=== PATIENT | female | born 1955 | race Caucasian/White ===

== ENCOUNTER → 2016-11-02 | Day surgery (SDC) | payer OTHER ==
[~2016-11-02] MED LIST: ACETAMINOPHEN PO; ALB/IPRATROPIUM/1 E1 INH; ALBUTEROL 0.5ML INH; ALBUTEROL INH; ALBUTEROL MININEB INH; ALBUTEROL17 GM INH; AMBIEN PO; AMITRIPTYLINE H50 MG PO; ANUSOL-HC SUPP25 M1 PR; ASPIRIN EC81 M1 PO; ASPIRIN PO; ASPIRIN81 M1 PO; ASPIRIN81 MG PO; ATIVAN0.5 M1 PO; ATROVENT HFA12.9 G1 INH; ATROVENT HFA12.9 GM INH; BACTRIM DS TABL1 TA1 PO; BUSPAR15 M1 PO; CELEXA20 MG PO; CIPRO PO; CIPRODEX OTIC7.5 ML OT; CLARITIN10 M2 PO; CLOPIDOGREL75 MG PO; COLACE PO; COMBIVENT U/D3 M2 INH; COREG; COREG PO; COREG3.125 MG PO; COREG6.25 MG PO; CRESTOR10 MG PO; CYMBALTA PO; DARVOCET-N 1001 TAB PO; DESYREL100 MG PO; DESYREL50 MG PO; DOC-Q-LACE100 MG PO; DOCUSATE SODIU100 MG PO; DOXEPIN HCL25 MG PO; DOXEPIN HCL50 MG PO; DURAGESIC100 MCG EXT; DURAGESIC75 MCG EXT; DURAGESIC75 MCG TD; EFFEXOR-XR150 MG PO; EFFIENT10 MG PO; FLEXERIL PO; FLEXERIL10 M1 PO; FLEXERIL10 MG PO; FLOMAX0.4 M1 PO; FLORASTOR250 M1 PO; FLORASTORKIDS250 MG PO; FLOVENT HFA12 GM INH; FUROSEMIDE40 MG PO; GABAPENTIN400 M2 PO; GABAPENTIN800 MG PO; GLUCOPHAGE500 M1 PO; GLUCOPHAGE500 MG PO; GUAIFENESIN-DM S5 ML PO; IBUPROFEN PO; IMDUR PO; IMODIUM MS REL1 EAC1 PO; IMODIUM2 MG PO; IPRAT-ALBUT 0.5-3 ML IH; K-DUR20 ME1 PO; KCL PO; KLONOPIN PO; KLONOPIN1 MG PO; LACTULOSE10 G/15 M1 PO; LASIX PO; LASIX20 MG PO; LEVAQUIN750 MG PO; LIDODERM30 EA TOP; LISINOPRIL PO; LISINOPRIL10 MG PO; LISINOPRIL2.5 MG PO; LISINOPRIL20 MG PO; LORTAB 5/500 TA1 TA1 PO; MAALOX ADVANCE1 EACH PO; MEDROL PO; MEPILEX TOP; METHIMAZOLE10 MG PO; METHIMAZOLE5 MG PO; METOPROLOL TAR25 MG PO; METOPROLOL TART25 MG PO; MI-ACID, M355 ML/SU1 PO; MILK OF MAGNESIA PO; MORPHINE SULFAT30 M4 PO; MS CONTIN30 MG PO; MUCINEX1200 MG PO; NEURONTIN PO; NEURONTIN800 MG PO; NEXIUM PO; NITRO-DUR 0.1M0.1 MG SL; NITROGLYCERIN0.4 MG SL; NITROGLYGERIN0.4 MG SL; NORCO 10/325 TA1 TAB PO; NORVASC PO; NYSTATIN100000 UN1 PO; OMEPRAZOLE20 M2 PO; OXYCODONE HCL30 MG PO; OXYCODONE HCL5 M1 PO; OXYCODONE15 M1 DOB; OXYCODONE15 M1 PO; PEPCID40 MG PO; PERCOCET 10/3251 TAB PO; PERCOCET 5/321 UDTAB PO; PERCOCET PO; PHENERGAN12.5 MG PO; PHENERGAN25 M1 PO; PHENERGAN25 MG PO; PHENERGAN25 MG/1 ML IM; PLAVIX PO; POTASSIUM20 MEQ/15 PO; PRAVASTATIN SOD40 MG PO; PRILOSEC PO; PRILOSEC40 MG PO; PROTONIX PO; PROTONIX20 MG PO; PULMICORT0.25 MG/2 INH; RANEXA PO; REGLAN10 MG PO; REGLAN5 MG PO; RENEXA PO; RESTORIL7.5 MG PO; ROBAXIN PO; ROCEPHIN1 G/VIA1 IV/IM; ROXICODONE30 M1 PO; SENNA-S TABLET1 EACH PO; SIMVASTATIN40 MG PO; SIMVASTATIN80 MG PO; SINGULAIR PO; SYMBICORT; SYMBICORT 160/4.6 GM INH; SYMBICORT INH; SYMBICORT80 INH; TAPAZOLE10 MG PO; TESSALON PERLE100 M1 PO; TRICOR PO; TYLENOL325 M1 PO; TYLOX 5/500 CAP1 CAP PO; VALTREX PO; VENTOLIN IH; VENTOLIN5 MG/ML; VICODIN 5/500 T1 TAB PO; VITAMIN D350000 UNIT PO; VOLTAREN50 MG PO; VOLTAREN75 MG PO; VYTORIN 10/40 T1 TAB PO; WALGREENS PHARMACY; ZESTRIL10 MG PO; ZITHROMAX PO; ZOCOR PO; ZOLPIDEM TARTRA10 MG PO
--- NOTE | ~2016-11-02 | OR ---
Unit #: [id number] #: [id number] Patient: KYLAH HAQ [id number] [address] [place], [place] [address] [id number] O MR#: [id number] NAME: KYLAH HAQ. ROOM: Date of Procedure: 11/02/2016 Admission Date: 11/02/2016 Surgeon: Steven Marcano M.D. : 1955 Attending Physician: Steven Marcano M.D. OPERATIVE REPORT PRIMARY CARE PHYSICIAN Og Goss M.D. PREOPERATIVE DIAGNOSES The patient presented with history of odynophagia. She is on multiple medications. PROCEDURE PERFORMED Upper gastrointestinal endoscopy. POSTOPERATIVE DIAGNOSES Completely normal examination up to third part of duodenum. Specifically, no abnormalities were present in the oropharynx, hypopharynx, interarytenoid folds, and vallecula, as well as in the entire esophagus. RECOMMENDATIONS Suggest doing a modified swallow evaluation in the half-way and review in the office in about 3 months. SEDATION USED MAC. DESCRIPTION OF PROCEDURE Following detailed explanation of potential risks and complications of an upper endoscopy, namely perforation, bleeding, and complication related to sedation, the patient was brought to GI lab and laid in the left lateral decubitus position. Lubricated tip of the Olympus video upper endoscope was passed through the bite block into the proximal esophagus under direct vision. The entire esophageal mucosa was examined and appeared normal. Z-line was nicely demarcated, there being no esophagitis or hiatus hernia. The scope was then advanced into the gastric cavity and the latter was insufflated. Mucosa of the fundus, body, and antrum was examined and appeared unremarkable. Pylorus was intubated with visualization of the normal duodenal bulb and second and third part of the duodenum. Upon withdrawal and retroflexion, incisura, cardia, and greater curve was examined and no additional findings were noted. The scope was then withdrawn in the distal esophagus. The entire esophageal mucosa was examined all the way up to pharynx. No additional findings were noted. Particular attention was paid to the posterior pharynx, vallecula, interarytenoid folds and these were all normal. The scope was then withdrawn and the patient returned to the recovery area. She tolerated the procedure without any postprocedure complications. Unit #: [id number] #: [id number] Patient: KYLAH HAQ Dictated by... Gurinder Fuchs/ashlie TD: 11/02/2016 10:52 JOB #: [id number] CC: Og Goss M.D. OPERATIVE REPORT Page 1 of 1 X Steven Marcano MD X PROCEDURE OPERATIVE NOTE
== END | disposition home or self-care (01) ==
LOC: COPS 08:11
DX: R13.10 Dysphagia, unspecified (principal); E11.9 Type 2 diabetes mellitus without complications; K21.9 Gastro-esophageal reflux disease without esophagitis; J44.9 Chronic obstructive pulmonary disease, unspecified; I25.10 Atherosclerotic heart disease of native coronary artery without angina pectoris; F17.200 Nicotine dependence, unspecified, uncomplicated; I25.2 Old myocardial infarction; Z95.5 Presence of coronary angioplasty implant and graft; Z88.1 Allergy status to other antibiotic agents; I69.354 Hemiplegia and hemiparesis following cerebral infarction affecting left non-dominant side
CPT/HCPCS: 82947

== ENCOUNTER 2016-12-15 22:21 | Emergency (ER) | payer OTHER ==
--- NOTE | ~2016-12-15 | CR71 ---
[facility] A Service of [facility] & [facility] RADIOLOGY TEXT RESULTS PATIENT: KYLAH HAQ LOCATION: [facility] : 55 UNIT #: [id number] AGE: [address]: Kaylyn Draper MD SEX: F ORDER DR: [id number] [facility] [address] [place], [place] [address] [id number] E MR#: [id number] Acc #: [id number] NAME: KYLAH HAQ. : 1955 SEX: F STUDY DATE/TIME: 12/15/2016 21:42 UNIT: [facility] ROOM: STUDY DESCRIPTION: CR Chest Single View Attending Physician: Kaylyn Draper M.D. Ordering Physician: Kaylyn Draper M.D. Primary Care Physician: Og Goss M.D. MEDICAL IMAGING REPORT This report is preliminary unless electronic signature is present EXAM Portable chest 12/15/2016 HISTORY Chest pain status post fall with shortness of breath today. Benign essential hypertension. FINDINGS The heart is top-normal in size. There is poor inspiratory result with bibasilar atelectasis. The lungs are otherwise clear. There are no pleural effusions. Old, healed rib fractures are seen bilaterally. IMPRESSION Mild cardiac enlargement. No active pulmonary disease. Dictated by... Mao Blue M.D. THIS IS AN ELECTRONICALLY VERIFIED REPORT Mao Blue M.D. at 12/16/2016 2:16 PM KRT/psc TD: 12/16/2016 00:46 JOB #: [id number] MEDICAL IMAGING REPORT Page 1 of 1 COPY
--- NOTE | ~2016-12-15 | CR229 ---
[facility] A Service of [facility] & [facility] RADIOLOGY TEXT RESULTS PATIENT: KYLAH HAQ LOCATION: [facility] : 55 UNIT #: [id number] AGE: [address]: Kaylyn Draper MD SEX: F ORDER DR: [id number] [facility] [address] [place], [place] [address] [id number] E MR#: [id number] Acc #: [id number] NAME: KYLAH HAQ : 1955 SEX: F STUDY DATE/TIME: 12/15/2016 21:43 UNIT: [facility] ROOM: STUDY DESCRIPTION: CR Shoulder Min 2 View Lt Attending Physician: Kaylyn Draper M.D. Ordering Physician: Kaylyn Draper M.D. Primary Care Physician: gO Goss M.D. MEDICAL IMAGING REPORT This report is preliminary unless electronic signature is present EXAM Left shoulder, 3 views, 12/15/2016 HISTORY Left shoulder pain status post fall today. FINDINGS Three views of the left shoulder demonstrate no fracture. The bones are osteopenic. There is degenerative narrowing of the left glenohumeral joint with osteophytic spurring about the glenoid and left humeral head. The left acromioclavicular joint is intact. There is no soft tissue abnormality. IMPRESSION Degenerative change and osteopenia. No acute abnormality involving the left shoulder. Dictated by... Mao Blue M.D. THIS IS AN ELECTRONICALLY VERIFIED REPORT Mao Blue M.D. at 12/16/2016 2:16 PM KRT/mario TD: 12/16/2016 00:57 JOB #: [id number] MEDICAL IMAGING REPORT Page 1 of 1 COPY
--- NOTE | ~2016-12-15 | CR150 ---
[facility] A Service of [facility] RADIOLOGY TEXT RESULTS PATIENT: KYLAH HAQ LOCATION: [facility] : 55 UNIT #: [id number] AGE: [address]: Kaylyn Draper MD SEX: F ORDER DR: [id number] [place] [id number] [facility]. [place], [place] [address] [id number] E MR#: [id number] Acc #: [id number] NAME: KYLAH HAQ. : 1955 SEX: F STUDY DATE/TIME: 12/15/2016 21:39 UNIT: [facility] ROOM: STUDY DESCRIPTION: CR Hip Min 2 Views Lt Attending Physician: Kaylyn Draper M.D. Ordering Physician: Kaylyn Draper M.D. Primary Care Physician: Og Goss M.D. MEDICAL IMAGING REPORT This report is preliminary unless electronic signature is present EXAM Left hip, [address] abdomen and pelvis dated November 29, 2005 and 2 views of the left hip dated August 31, 2013. INDICATIONS 61-year-old female with left hip pain after falling today. FINDINGS The exam is limited by patient body habitus, which is causing underpenetration. The patient is also osteopenic. There is lumbar scoliosis. There is also nonstandard positioning of the pelvis, which limits evaluation for acute pelvic fracture. Left hip is anatomically aligned. There is no evidence of acute fracture. Heterotopic ossification is seen in the gluteal regions and proximal left thigh. IMPRESSION Exam is limited by nonstandard positioning as well as patient body habitus and osteopenia. No evidence of acute fracture or dislocation of the left hip. Dictated by... Asif Mariscal M.D. THIS IS AN ELECTRONICALLY VERIFIED REPORT Asif Mariscal M.D. at 12/20/2016 7:22 PM DIANA/mario TD: 12/16/2016 00:40 JOB #: [id number] [facility] A Service of [facility] RADIOLOGY TEXT RESULTS PATIENT: KYLAH HAQ LOCATION: [facility] : 55 UNIT #: [id number] AGE: [address]: Kaylyn Draper MD SEX: F ORDER DR: MEDICAL IMAGING REPORT Page 1 of 1 COPY
--- NOTE | ~2016-12-15 | CT71 ---
[facility] A Service of [facility] & [facility] RADIOLOGY TEXT RESULTS PATIENT: KYLAH HAQ LOCATION: [facility] : 55 UNIT #: [id number] AGE: [address]: Kaylyn Draper MD SEX: F ORDER DR: [id number] [facility] [address] [place], [place] [address] [id number] E MR#: [id number] Acc #: [id number] NAME: KYLAH HAQ. : 1955 SEX: F STUDY DATE/TIME: 12/15/2016 22:01 UNIT: [facility] ROOM: STUDY DESCRIPTION: CT Head Wo Contrast Attending Physician: Kaylyn Draper M.D. Ordering Physician: Kaylyn Draper M.D. Primary Care Physician: Og Goss M.D. MEDICAL IMAGING REPORT This report is preliminary unless electronic signature is present EXAM CT head without contrast DATE 12/15/2016 at 22:01 HISTORY Fell today. Left hip, left shoulder pain. Shortness of breath. Hit head. Left side deficits from previous transient ischemic attack. Additional history of hypertension, thyroid disease, diabetes, COPD, multiple prior myocardial infarctions. COMPARISON Noncontrast CT head 10/11/2013. FINDINGS This CT exam was performed with one or more of the following radiation dose reduction techniques: Automatic exposure control, adjustment of mA and/or kV according to patient size, and iterative reconstruction. Large region of encephalomalacic changes demonstrated within the right frontal, parietal and right anterior temporal lobes consistent with old right MCA territory infarct. Hypodensities are seen within the periventricular deep white matter consistent with the appearance of chronic microvascular disease. There is mild prominence of the extraaxial spaces likely related to mild generalized parenchymal atrophy. There is ex vacuo dilation of the right ventricle related to the aforementioned adjacent encephalomalacic change. No acute intracranial hemorrhage is seen. Some dystrophic calcification is seen in the right frontal lobe in the area of encephalomalacia. No mass lesion or midline shift is identified. No displaced calvarial fractures seen. Mild ethmoid sinus mucosal thickening. Mastoid air cells are clear. Intracranial carotid artery calcifications are present. STS. [facility] A Service of [facility] & [facility] RADIOLOGY TEXT RESULTS PATIENT: KYLAH HAQ [id number] 55 UNIT #: [id number] AGE: [address]: Kaylyn Draper MD SEX: F ORDER DR: IMPRESSION 1. Extensive encephalomalacic change within the right frontal, anterior right parietal and anterior right temporal lobes consistent with remote right MCA territory infarct. 2. No acute intracranial findings. 3. Mild generalized atrophy. Dictated by... Swathi Becker M.D. THIS IS AN ELECTRONICALLY VERIFIED REPORT Swathi Becker M.D. at 12/16/2016 10:07 PM KENDRICK/mario TD: 12/16/2016 00:28 JOB #: [id number] MEDICAL IMAGING REPORT Page 1 of 1 COPY
[~2016-12-15 22:21] MED LIST changes: -ATROVENT HFA12.9 GM INH; -COMBIVENT U/D3 M2 INH; -CRESTOR10 MG PO; -FLORASTORKIDS250 MG PO; -MEPILEX TOP; -MUCINEX1200 MG PO; -NYSTATIN100000 UN1 PO; -PERCOCET PO
[2017-04-27] MEDS ORDERED: NYSTATIN100000 UN1 PO (09:10)
[2017-04-27] MEDS ORDERED: FLOMAX0.4 M1 PO (09:11)
[2017-04-27] MEDS ORDERED: FLORASTORKIDS250 MG PO (09:14)
[2017-04-27] MEDS ORDERED: MUCINEX1200 MG PO (09:17)
[2017-04-27] MEDS ORDERED: SYMBICORT INH (09:22)
[2017-04-27] MEDS ORDERED: CRESTOR10 MG PO (09:24)
[2017-04-27] MEDS ORDERED: COMBIVENT U/D3 M2 INH (09:28)
[2017-04-27] MEDS ORDERED: ATROVENT HFA12.9 GM INH (09:36)
== END 2016-12-16 01:13 | disposition home or self-care (01) ==
LOC: CED 22:21
DX: S40.012A Contusion of left shoulder, initial encounter (principal); S70.02XA Contusion of left hip, initial encounter; I11.0 Hypertensive heart disease with heart failure; I50.9 Heart failure, unspecified; I25.10 Atherosclerotic heart disease of native coronary artery without angina pectoris; Z88.8 Allergy status to other drugs, medicaments and biological substances; Z79.82 Long term (current) use of aspirin; Z79.899 Other long term (current) drug therapy; W18.2XXA Fall in (into) shower or empty bathtub, initial encounter; Y92.129 Unspecified place in nursing home as the place of occurrence of the external cause
CPT/HCPCS: 70450; 71010; 73030; 73502; 99284

== ENCOUNTER 2017-03-29 20:56 | Inpatient (IN) | payer OTHER ==
[~2017-03-29] VITALS: Ht 160 cm; Wt 80.7 kg
--- NOTE | ~2017-03-29 | CO ---
Unit #: [id number] #: [id number] Patient: KYLAH HAQ [id number] [address] [address] [id number] Jason MR#: [id number] NAME: KYLAH HAQ. ROOM: 231 Age: 62 Sex: F Admission Date: 03/30/2017 : 1955 Attending Physician: Kinjal Paige M.D. Primary Care Physician: Og Goss M.D. Consultation Date: 04/05/2017 CONSULTATION REPORT REASON FOR CONSULTATION Management of diabetes mellitus. HISTORY OF PRESENT ILLNESS This is a 62-year-old female, who has a history of COPD, congestive heart failure with ejection fraction of 20%, who was admitted with COPD exacerbation. She was started on IV steroids. Blood sugars were elevated. I was called on consult for management of diabetes. She was started on NPH insulin 25 units before each Solu-Medrol dose yesterday and the patient is being seen today. She is a jail resident. PAST MEDICAL HISTORY 1. Type 2 diabetes mellitus, uncontrolled. 2. History of CVA. 3. GERD. 4. COPD. 5. Coronary artery disease. 6. Type 2 diabetes mellitus, on metformin. 7. History of thyroid nodule. 8. Congestive heart failure with an EF of 20%. 9. Kidney stones. 10. Diverticulosis. PAST SURGICAL HISTORY Thyroidectomy, cardiac cath, cholecystectomy, total abdominal hysterectomy. HOME MEDICATIONS List was reviewed. The patient is on metformin at jail. Currently, the patient is on NPH 25 units b.i.d. and NovoLog 5 units each meal and supplemental sliding scale. ALLERGIES To Zofran, Compazine, tetracycline, IV dye. SOCIAL HISTORY Continues to smoke a pack per day. [facility] She is ex-nurse. FAMILY HISTORY Pertinent for diabetes. REVIEW OF SYSTEMS A 12-point review of system was completed and unremarkable except as noted Unit #: [id number] #: [id number] Patient: KYLAH HAQ in HPI. PHYSICAL EXAMINATION GENERAL: She is awake, alert, oriented to time, place, and person. VITAL SIGNS: Stable. HEENT: EOMI. Pupils equally reactive to light. NECK: Supple. CHEST: Good air entry. CVS: Regular rhythm. No murmurs. ABDOMEN: Soft and nontender. Bowel sounds positive. EXTREMITIES: No edema noted. DIAGNOSTIC STUDIES LABORATORY RESULTS: Reviewed. A1c 7.3%, recent A1c is not available. BUN is 22, creatinine is 0.5. Sodium 135 potassium 4.3, chloride 99, CO2 is 29. ASSESSMENT 1. Type 2 diabetes mellitus with acute hyperglycemia due to IV steroids. 2. Chronic obstructive pulmonary disease exacerbation. PLAN The patient's blood sugars improved now, but she has her Solu-Medrol has already been discontinued. She is being discharged today to the [facility]. I am going to discontinue all her NPH insulins and NovoLog scheduled 5 units with meal. Continue medium dose sliding scale. Continue metformin. Thanks again for consultation. Dictated by... Gurinder Alexis/ashlie TD: 04/05/2017 18:29 JOB #: [id number] CONSULTATION REPORT Page 1 of 1 X Ciro Del Cid MD X CONSULTATION REPORT
--- NOTE | ~2017-03-29 | CT4 ---
[facility] A Service of [facility] & [facility] RADIOLOGY TEXT RESULTS PATIENT: KYLAH HAQ LOCATION: [facility] : 55 UNIT #: [id number] AGE: [address]: Kinjal Paige MD SEX: F ORDER DR: [id number] [facility] [address] [place], [place] [address] [id number] I MR#: [id number] Acc #: [id number] NAME: KYLAH HAQ. : 1955 SEX: F STUDY DATE/TIME: 03/29/20172156 UNIT: [facility] ROOM: [facility] STUDY DESCRIPTION: CT Abd and Pelv Wo Cont Attending Physician: Kinjal Paige M.D. Ordering Physician: Adonay Garves D.O. Primary Care Physician: Og Goss M.D. MEDICAL IMAGING REPORT This report is preliminary unless electronic signature is present EXAM Abdomen and pelvis CT, 03/29/2017 at 2157. INDICATION Abdominal pain with nausea, vomiting, and diarrhea that started today. TECHNIQUE Axial noncontrast images were obtained through the abdomen and pelvis. Multiplanar reformats were obtained. This CT exam was performed with one or more of the following radiation dose reduction techniques: automatic exposure control, adjustment of mA and/or kV according to patient size, and iterative reconstruction. COMPARISON Comparison made with 11/05/2014. FINDINGS ABDOMEN: Heart is enlarged. There is coronary artery disease. There is infiltrate in the left lower lobe which could certainly reflect pneumonia in the appropriate clinical setting. It could also reflect atelectasis. Gallbladder is surgically absent. There is diffuse atherosclerotic disease. No aortic aneurysm. Dominant nonobstructing stone in the left kidney measures about 8 mm. No ureteral stones are seen. There is no hydronephrosis. Unenhanced solid organs are otherwise normal. There is fairly diffuse colonic diverticulosis. No focal diverticulitis is seen. Mildly distended proximal to mid small bowel loops are present and are similar in appearance to the prior study and may simply reflect a component of ileus. Early small bowel obstruction could have this appearance as well. No free fluid. PELVIS: There is extensive lower colonic diverticulosis. No definite acute diverticulitis. Urinary bladder is normal. Uterus is surgically STS. [facility] A Service of [facility] RADIOLOGY TEXT RESULTS PATIENT: KYLAH HAQ LOCATION: [facility] 231-01 : 55 UNIT #: [id number] AGE: [address]: Kinjal Paige MD SEX: F ORDER DR: absent, as is the appendix. No free fluid. Injection granulomata are noted in both flanks. There is degenerative disease in the lumbar spine. Patient is status post kyphoplasty at T12. There is some mild sclerosis in the right symphysis pubis which is new from the prior study. This could reflect an old fracture. IMPRESSION 1. Dense consolidation in the left lower lobe concerning for pneumonia. Atelectasis is a differential consideration. 2. Dilatation of the proximal to mid small bowel. It is somewhat similar to the prior study. Considerations include small bowel ileus versus developing small bowel obstruction. 3. Diffuse colonic diverticulosis without focal diverticulitis. 4. Hysterectomy, appendectomy, and cholecystectomy. 5. Nonobstructing stone in the left kidney. No ureteral stones are seen and there is no hydronephrosis. Dictated by... Davidson Estrada Jr., M.D. THIS IS AN ELECTRONICALLY VERIFIED REPORT Davidson Estrada Jr., M.D. at 03/30/2017 11:27 PM GAEL/maxwell TD: 03/30/2017 09:10 JOB #: [id number] MEDICAL IMAGING REPORT Page 1 of 1 COPY
--- NOTE | ~2017-03-29 | CO ---
Unit #: [id number] #: [id number] Patient: KYLAH HAQ [id number] [address] [address] [id number] I MR#: [id number] NAME: KYLAH HAQ. ROOM: 231 Age: Sex: F Admission Date: 03/30/2017 : 1955 Attending Physician: Kinjal Piage M.D. Primary Care Physician: Og Goss M.D. CONSULTATION REPORT REASON FOR CONSULTATION ESBL UTI. HISTORY OF PRESENT ILLNESS Ms. Haq is a 61-year-old female who is a resident of a prison with a past medical history significant for COPD, chronic respiratory failure, history of congestive heart failure, diabetes, history of CVA with left-sided weakness, history of gastroparesis, diverticulosis, coronary artery disease, hepatic steatosis who was admitted for continued complaints of perfuse diarrhea as well as shortness of breath, cough, chest pain, and difficulty breathing, as well as, dysuria. Per the patient, she was treated for a UTI with IM Rocephin about two weeks ago. Did not feel like at that point her urinary tract infection had improved and she had continued with a lot of loose stools. We are now being consulted for positive urine culture which is currently growing ESBL E. coli UTI. Per the patient, it was taken as a straight cath in the ER. We are also being consulted for antibiotic management. At this time, the patient complains of some shortness of breath and cough which she feels like it may have been related to her COPD, and she was also concerned as well as positive sputum production. She complains of dysuria and just feeling weak. Her bowels are loose but at this point she has not had a bowel movement in the last 24 hours and stated that she was given some Imodium at the prison which may have helped. PAST MEDICAL HISTORY 1. COPD. 2. Chronic respiratory failure. 3. CHF. 4. Diabetes. 5. CVA. 6. Gastroparesis. 7. Diverticulosis. 8. Coronary artery disease. 9. Hepatic steatosis. PAST SURGICAL HISTORY 1. Thyroidectomy. 2. Cardiac cath. 3. Cholecystectomy. 4. Total abdominal hysterectomy. ALLERGIES Tetracycline, IV dye, Zofran, Compazine. Unit #: [id number] #: [id number] Patient: KYLAH HAQ SOCIAL HISTORY The patient lives in a prison. She is a smoker. Denies any alcohol abuse or illicit drug use. FAMILY HISTORY Noncontributory. CURRENT MEDICATIONS Meropenem. REVIEW OF SYSTEMS All negative except for those stated in HPI. PHYSICAL EXAMINATION GENERAL: Resting in bed, no apparent distress. VITAL SIGNS: Temperature is 98.3, heart rate 64, respirations 18, blood pressure 112/55. CARDIOVASCULAR: Regular rate. PULMONARY: Coarse throughout, nonlabored, diminished in the bases. GASTROINTESTINAL: Soft, nontender. Positive bowel sounds. MUSCULOSKELETAL: Left arm is contractured with weakness. Left leg weakness. SKIN: Dry and intact. NEUROLOGIC: Alert and oriented. DIAGNOSTIC STUDIES LABORATORY: BUN is 16, creatinine 0.5, GFR 104.5, sodium 133, potassium 4.4. White count 13, it was 17.4 on admission. Hemoglobin is 12.7, platelets 198,000. Urinalysis with 5-10 white blood cells, 2+ bacteria. IMAGING: CT abdomen and pelvis with dense consolidation in the left lower lobe concerning for pneumonia. Atelectasis is a differential consideration. Dilatation of the proximal to mid small bowel, somewhat similar to prior study which could be possible ileus versus small bowel obstruction. Diffuse colonic diverticulosis without focal diverticulitis. No obstructing stones in the left kidney. No real stones or hydronephrosis. Chest x-ray with interval development of opacity of the left base with some elevation of the left hemidiaphragm. Possible aspiration pneumonia. MICROBIOLOGY: Urine culture with ESBL E. coli. Stool culture with pending Clostridium difficile. Blood cultures are no growth to date. ASSESSMENT 1. A 61-year-old female resident of prison admitted for complaints of shortness of breath, cough, dysuria, and diarrhea. 2. Urinary tract infection with Escherichia coli extended spectrum beta lactamases. Urine was collected as a straight cath, per the patient. 3. Possible chronic obstructive pulmonary disease exacerbation versus possibly new pneumonia. 4. History of diabetes mellitus. 5. History of congestive heart failure. PLAN At this time, will continue with meropenem. Will also check a sputum culture and will also check a CBC in the a.m. Will discuss plan with Dr. Amezquita and further recommendations will come from him. At this point, Unit #: [id number] #: [id number] Patient: KYLAH HAQ patient is clinically stable and doing well and she reports that she is feeling better since admission. She has also stated that diarrhea has subsided. Will rule out for any possible Clostridium difficile, although doubt since patient has not had any bowel movements in the last 24-48 hours. Will followup on Clostridium difficile results. Will discuss plan with MD. Thank you for consultation. Dictated by... Mariangel Ramirez APRN for Gurinder Sandoval TD: 04/01/2017 12:04 JOB #: [id number] CONSULTATION REPORT Page 1 of 1 X X CONSULTATION REPORT
--- NOTE | ~2017-03-29 | CR72 ---
[facility] A Service of [facility] & [facility] RADIOLOGY TEXT RESULTS PATIENT: KYLAH HAQ LOCATION: C2A : 55 UNIT #: [id number] AGE: [address]: Kinjal Paige MD SEX: F ORDER DR: [id number] [facility] [address] [place], [place] [address] [id number] I MR#: [id number] Acc #: [id number] NAME: KYLAH HAQ. : 1955 SEX: F STUDY DATE/TIME: 03/29/2017 22:24 UNIT: [facility] ROOM: [facility] STUDY DESCRIPTION: CR Chest Single View Portable Attending Physician: Kinjal Paige M.D. Ordering Physician: Adonay Graves D.O. Primary Care Physician: Og Goss M.D. MEDICAL IMAGING REPORT This report is preliminary unless electronic signature is present EXAM Chest x-ray 1-view portable HISTORY Cough, left-sided chest pain, anxiety. Symptoms for 2 days. History of COPD and coronary artery disease with coronary artery stents. COMMENT Single frontal portable view of the chest timed 22:24 03/29/2017 compared to 12/15/2016. There is moderate cardiac silhouette enlargement and vaguely seen is a coronary artery stent. Calcification at the aortic knob. There is some new elevation of the left hemidiaphragm and concern for some left base airspace disease. Please correlate for clinical concern for aspiration or pneumonia and followup to complete clearing is recommended. Evidence for underlying chronic lung disease as well. Old healed left rib fracture is noted. There is no evidence for pneumothorax. No convincing evidence for congestive failure. Cannot exclude some left pleural fluid. IMPRESSION 1. Interval development of an opacity at the left base with some elevation of the left hemidiaphragm. Please correlate for clinical evidence for aspiration or pneumonia. Followup to complete clearing is recommended. Cannot exclude a component of left pleural fluid. 2. Cardiac silhouette enlargement with evidence of a coronary artery stent. No convincing evidence for congestive failure. 3. Distortion of parenchymal architecture consistent with history of known chronic lung disease. Dictated by... Iman Ramos M.D. [facility] A Service of [facility] & [facility] RADIOLOGY TEXT RESULTS PATIENT: YKLAH HAQ LOCATION: [facility] 231-01 : 55 UNIT #: [id number] AGE: [address]: Kinjal Paige MD SEX: F ORDER DR: THIS IS AN ELECTRONICALLY VERIFIED REPORT Iman Ramos M.D. at 03/30/2017 2:13 PM Kalin TD: 03/30/2017 09:09 JOB #: [id number] MEDICAL IMAGING REPORT Page 1 of 1 COPY
--- NOTE | ~2017-03-29 | DS ---
Unit #: [id number] #: [id number] Patient: SAKINA HAQ [id number] [address] [address] [id number] I MR#: [id number] NAME: SAKINA HAQ ROOM: 231 Age: 62 Sex: F Admission Date: 03/30/2017 : 1955 Discharge Date: 04/05/2017 Attending Physician: Kinjal Paige M.D. Primary Care Physician: Og Goss M.D. DISCHARGE SUMMARY FINAL DIAGNOSES 1. Acute exacerbation of chronic obstructive pulmonary disease. 2. Urinary tract infection with urine culture positive for ESBL e-coli. 3. Chronic anemia. 4. Hypertension. 5. History of CVA. 6. Diabetes mellitus type 2. 7. History of coronary artery disease. 8. Pneumonia. DISCHARGE MEDICATIONS 1. IV Meropenem 500 mg q.6 h. for 9 more days. 2. Nitroglycerin 0.4 mg sublingual p.r.n. chest pain. 3. Aspirin 81 mg daily. 4. Motrin 400 mg p.o. p.r.n. 5. MS Contin 7 mg q.12 h. 6. Percocet 10/325 mg 1 tablet q.6 h. p.r.n. 7. Plavix 75 mg daily. 8. Protonix 40 mg daily. 9. Potassium 20 mEq daily. 10. Pravastatin 40 mg at nighttime. 11. Lisinopril 5 mg daily. 12. Insulin N 25 units b.i.d. 13. NovoLog 5 units subcutaneous t.i.d. with meals. 14. Trazodone 100 mg at nighttime. 15. Effexor 150 mg daily. 16. Metformin 5 mg daily. 17. Lomotil 2 mg q.i.d. p.r.n. 18. Promethazine 25 mg q.i.d. p.r.n. 19. BuSpar 50 mg b.i.d. 20. Docusate 200 mg b.i.d. 21. Albuterol nebulizer treatment q.i.d. 22. Flomax 0.4 mg at nighttime. 23. Neurontin [address] CON[address] Dr. Thomason and Dr. garrett from pulmonary services. Dr. Amezquita from infectious disease services. DIAGNOSTIC DATA LABORATORY: BMP shows sodium 135, potassium 4.3, chloride 99, BUN 22, creatinine 0.5. CBC shows white blood cell count 13.2, hemoglobin 12.6, hematocrit 38.0, platelet count 192. Glucose 158. Blood cultures were no growth. Lactic acid 2.5. Urine culture is positive for ESBL e-coli more Unit #: [id number] #: [id number] Patient: SAKINA HAQ than 100,000 colonies. IMAGING: CT scan of the abdomen and pelvis, dense consolidation of the left lower lobe concerning for pneumonia. Dilatation of the proximal to mid small bowel. Diffuse colonic diverticulosis. Chest x-ray was done on 03/29/2017 which shows interval development of opacity of the left base. HOSPITAL COURSE Sakina Haq is a 63-year-old female who was admitted with shortness of breath. She is a resident of the group home. She was admitted with the diagnosis of possible chronic obstructive pulmonary disease exacerbation, pneumonia, urinary tract infection, diabetes mellitus, diarrhea. Please refer to history and physical for complete history and physical. The patient was admitted to the medical/surgical unit. Dr. Amezquita was consulted. Dr. Garrett was consulted. The patient was started on broad spectrum IV antibiotics. Urine culture grew ESBL e-coli and antibiotic was changed to Merrem. That needs to be continued for nine more days. The patient is doing well at this time and is being discharged back to the group home in stable condition. DISCHARGE INSTRUCTIONS 1. Medication as per medication reconciliation. 2. Dr. Goss to follow the patient. 3. Continue IV Merrem for nine more days. 4. Physical therapy and occupational therapy at the group home. 5. CBC and BMP to be done in three to four days. 6. (1) morning and evening. 7. The patient's insulin was increased during hospitalization. That may need to be observed as Solu-Medrol has been discontinued. PHYSICAL EXAMINATION VITALS: On discharge blood pressure 103/81, respiratory rate 16, pulse 73, temperature 98.0. Oxygen saturation is 93%. HEENT: Head is normocephalic. CHEST: Decreased air entry bilaterally. HEART: S1 and S2 positive. Regular rhythm. ABDOMEN: Soft. EXTREMITIES: Edema is present. SKIN: (1) seems to be clear. NEUROLOGIC: Left-sided weakness is present. Dictated by... Gurinder Leiva TD: 04/05/2017 13:04 JOB #: [id number] Unit #: [id number] #: [id number] Patient: SAKINA HAQ DISCHARGE SUMMARY Page 1 of 1 X Kinjal Paige MD X DISCHARGE SUMMARY
--- NOTE | ~2017-03-29 | CO ---
Unit #: [id number] #: [id number] Patient: KYLAH HAQ [id number] [address] [address] [id number] I MR#: [id number] NAME: KYLAH HAQ. ROOM: 231 Age: 61 Sex: F Admission Date: 03/30/2017 : 1955 Attending Physician: Kinjal Paige M.D. Primary Care Physician: Og Goss M.D. Consultation Date: 04/01/2017 CONSULTATION REPORT REASON FOR CONSULT Acute exacerbation of COPD. HISTORY OF PRESENT ILLNESS This is a very pleasant 61-year-old female who is well known to our service from previous admission with past medical history significant for congestive heart failure with an ejection fraction of 20%, COPD, GERD, CVA, diverticulosis, smoking, who presented to the emergency room with explosive diarrhea for the last 10 days. Patient stated that she just recovered from a recent UTI and soon after she was having severe explosive diarrhea that she became incontinent because of it. Of note also patient has been congested with more shortness of breath and sometimes productive cough of yellowish sputum. She denied any fever, chills or night sweats. 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 She is disabled due to left-sided weakness from previous stroke. PAST MEDICAL HISTORY 1. Gastroparesis. 2. CVA. 3. Recurrent UTI. 4. GERD. 5. COPD. 6. Coronary artery disease. 7. Diabetes. 8. Hepatic steatosis. 9. Congestive heart failure with ejection fraction of 20%. 10. Thyroid nodule. 11. Kidney stone. 12. Diverticulosis. PAST SURGICAL HISTORY 1. Thyroidectomy. 2. Cardiac cath. 3. Cholecystectomy. 4. Total abdominal hysterectomy. HOME MEDICATION 1. Aspirin. 2. Symbicort. Unit #: [id number] #: [id number] Patient: KYLAH HAQ 3. Colace. 4. Neurontin. 5. Lasix. 6. MS Contin. 7. Omeprazole. 8. Pravastatin. 9. Cymbalta. 10. Reglan. ALLERGIES 1. Compazine 2. Zofran. 3. Tetracycline. 4. IV dye. SOCIAL HISTORY Patient continues to smoke half pack per day. 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 No history of alcohol or drug abuse. FAMILY HISTORY Hypertension and diabetes. REVIEW OF SYSTEMS A 12-point review of systems was obtained and was negative except for what was mentioned in the HPI. PHYSICAL EXAMINATION GENERAL: The patient is in no acute distress. VITAL SIGNS: Blood pressure is 132/58. O2 saturation 98%. HEENT: Normocephalic and atraumatic. PERRLA. EOMI. NECK: Supple. No JVD. No lymphadenopathy. CHEST: Scattered bilateral wheezing with find rhonchi. HEART: S1, S2. No murmur, gallops or rubs. ABDOMEN: Soft, nontender. Bowel sound is positive. No hepatosplenomegaly. EXTREMITIES: No edema or cyanosis. SKIN: No rashes. COSMETIC CONSULTANT: Awake, alert, oriented x3. Left-sided weakness. SKIN: No rashes. DIAGNOSTIC STUDIES LABORATORY: Creatinine 0.5, sodium 133, BNP 118, white blood count 13.0, hemoglobin 12.7. IMAGING: Chest x-ray is clear with no acute infiltrate. ASSESSMENT 1. Acute exacerbation of chronic obstructive pulmonary disease. 2. Extended-spectrum beta-lactamase urinary tract infection. 3. Diarrhea, rule out Clostridium difficile. 4. Chronic anemia. 5. Hypertension. 6. Cerebrovascular accident. 7. Diabetes. PLAN 1. Will continue patient on IV steroid and bronchodilator. 2. Meropenem for ESBL which will cover also any bronchitis or pneumonia. Unit #: [id number] #: [id number] Patient: KYLAH HAQ 3. Bronchodilator and mucolytics. 4. Physical therapy. 5. Stool sample for C. diff. I would like to thank Dr. Saucedo for allowing me to be part of this patient's care. Dictated by... Gurinder Leonard TD: 04/01/2017 23:08 JOB #: [id number] CONSULTATION REPORT Page 1 of 1 X IRMA LO MD CONSULTATION REPORT
--- NOTE | ~2017-03-29 | HP ---
Unit #: [id number] #: [id number] Patient: SAKINA HAQ [id number] [address] [address] [id number] I MR#: [id number] NAME: SAKINA HAQ ROOM: 231 Age: 61 Sex: F Admission Date: 03/30/2017 : 1955 Attending Physician: Kinjal Paige M.D. Primary Care Physician: Og Goss M.D. HISTORY AND PHYSICAL CHIEF COMPLAINT Shortness of breath, diarrhea. HISTORY OF PRESENT ILLNESS Ms. aSkina Haq is a 61-year-old female who is a resident of a retirement. Was sent from the retirement with the complaint of shortness of breath, diarrhea. The patient was found to have urinary tract infection, was admitted to med/surg. According to the patient, she was having loose stools for the last 3 days, but since last night she has not had any stools. This is kind of new for her. She does not get diarrhea on a regular basis. Also complaining of shortness of breath. She does not complain of chest pain or chest tightness. She does complain of cough. There is no sputum production. No fever, chills or rigors. No abdominal pain. Does not complain of hematuria or dysuria. PAST MEDICAL HISTORY 1. COPD. 2. Chronic respiratory failure. 3. History of congestive heart failure. 4. Diabetes mellitus type 2. 5. History of CVA. 6. History of gastroparesis. 7. Diverticulosis. 8. Coronary artery disease. 9. Hepatic steatosis. PAST SURGICAL HISTORY 1. Thyroidectomy. 2. Cardiac cath. 3. Cholecystectomy. 4. Total abdominal hysterectomy. ALLERGIES Tetracycline, IV dye, Zofran and Compazine. SOCIAL HISTORY The patient lives in a retirement. She is a smoker. No alcohol abuse or drug abuse. FAMILY HISTORY Family history of hypertension and diabetes is present. HOME MEDICATIONS 1. Aspirin 81 mg daily. Unit #: [id number] #: [id number] Patient: SAKINA HAQ 2. Atrovent inhaler 2 puffs q.6. 3. Pulmicort inhaler b.i.d. 4. BuSpar 15 mg t.i.d. 5. Colace 100 mg b.i.d. 6. Desyrel 100 mg at bedtime. 7. Effexor 150 mg daily. 8. Flomax 0.4 mg daily. 9. Gabapentin 800 mg q.i.d. 10. Glucophage 500 mg daily. 11. Advil 600 mg q.8 p.r.n. 12. Imodium 1 tablet q.i.d. p.r.n. 13. Potassium 20 mEq daily. 14. Lisinopril 5 mg daily. 15. Maalox q.i.d. p.r.n. 16. Morphine 30 mg b.i.d. 17. Nitroglycerin 0.4 mg sublingual p.r.n. 18. Phenergan on p.r.n. basis. 19. Plavix 75 mg daily. 20. Pravastatin 40 mg daily. 21. Albuterol sulfate inhaler q.i.d. p.r.n. 22. Senna 1 tablet b.i.d. 23. Percocet 10 mg q.6 p.r.n. REVIEW OF SYMPTOMS As per history of present illness. PHYSICAL EXAMINATION GENERAL: The patient is lying in bed. No respiratory distress. VITAL SIGNS: Blood pressure is 141/64, respiratory rate 20, pulse 82, temperature 98.8, oxygen saturation 94%. HEENT: Head is normocephalic. Eye movements are normal. NECK: Neck is supple. RESPIRATORY: Chest has fair air entry. Decreased at bases. Decreased breath sounds. ABDOMEN: Soft, nontender. EXTREMITIES: Negative edema. CVS: S1, S2 positive. OIL DELIVERER: The patient is awake, alert and oriented x3. The patient has residual paralysis on the left side. DIAGNOSTIC STUDIES LABORATORY: Lab workup done in ER shows troponin is less than 0.05. CBC shows WBC 17.4, hemoglobin 14.4, hematocrit 43.2, platelet count 238. Sodium 130, potassium 3.7, chloride 97, BUN 11, creatinine 0.3. Liver enzymes are stable. BNP 118. Urinalysis shows 4+ bacteria. Lactic acid is 0.9. This morning WBC is 10.2. ASSESSMENT 1. The patient is being admitted to med/surg unit with dyspnea; 2. Possible COPD exacerbation; 3. UTI; 4. Diarrhea; 5. Diabetes mellitus; 6. History of congestive heart failure; 7. History of coronary artery disease; 8. History of cerebrovascular accident. PLAN Unit #: [id number] #: [id number] Patient: SAKINA HAQ Admit to med/surg unit. IV Rocephin 1 gram q.24 hours is being started. Urine culture has been done. IV Solu-Medrol 40 mg q.8 is being started. Mini-Neb treatment with DuoNeb q.i.d. Levemir is being started, and metformin was discontinued. Home medications have been reviewed and adjusted. Plan of care has been discussed with the patient. Please refer to progress note for further orders. Dictated by Gurinder Leiva TD: 03/30/2017 09:24 JOB #: [id number] HISTORY AND PHYSICAL Page 1 of 1 X Kinjal Paige MD X HISTORY AND PHYSICAL
[2017-03-29 23:14] LABS: BASOPHIL# 0.1 X10e3 (0-0.3); BASOPHIL% 0.4 % (0-2.5); EOSINOPHIL# 0.2 X10e3 (0-0.7); EOSINOPHIL% 0.9 % (0.0-7.0); HEMATOCRIT 43.2 % (35.0-45.0); HEMOGLOBIN 14.4 gm/dL (12.0-16.0); LYMPHOCYTE# 2.7 X10e3 (1.0-3.5); LYMPHOCYTE% 15.3 % (17.0-45.0); MEAN CELL VOLUME 84.9 FL (83-96); MEAN CORPUSCULAR HEMOGLOBIN 28.3 PG (28-34); MEAN CORPUSCULAR HGB CONC 33.4 g/dL (30-36); MEAN PLATELET VOLUME 8.9 FL (6.5-11.5); MONOCYTE% 5.9 % (3.0-12.0); NEUTROPHIL# 13.5 X10e3 (1.5-7.1); NEUTROPHIL% 77.5 % (40-75); PLATELET COUNT 238 X10e3 (140-420); RED CELL DISTRIBUTION WIDTH 15.2 % (11.0-15.5); WHITE BLOOD COUNT 17.4 X10e3 (4.0-10.5)
[2017-03-29 23:15] LABS: DIFF IND YES
[2017-03-29 23:16] LABS: POC - CKMB 1.4 ng/mL (0.0-7.9); POC - TROPONIN <0.05 ng/mL (<=0.05)
[2017-03-29 23:30] LABS: PLATELET ESTIMATE NORMAL (NORMAL)
[2017-03-29 23:40] LABS: BILIRUBIN, DIRECT 0.1 mg/dL (0.0-0.2); BILIRUBIN,INDIRECT 0.5 mg/dL (0.0-0.9); BILIRUBIN,TOTAL 0.6 mg/dL (0.2-2.0); BUN/CREATININE RATIO 36.66; CALCIUM SERUM 8.8 mg/dL (8.4-10.2); CREATININE SERUM 0.3 mg/dL (0.6-1.4); GLOM FILT RATE Estimated 123.6 mL/min (>60); POTASSIUM 3.7 mmol/L (3.5-5.1); PROTEIN TOTAL SERUM 7.3 g/dL (6.0-8.3)
[2017-03-30 00:59] LABS: URINE SOURCE CLEAN CATCH
[2017-03-30 01:09] LABS: URINE APPEARANCE CLOUDY; URINE BILIRUBIN NEG (NEG); URINE BLOOD 2+ (NEG); URINE COLOR DK YELLOW; URINE GLUCOSE NEG (NEG); URINE KETONE TRACE (NEG); URINE LEUKOCYTE ESTERASE 1+ (NEG); URINE NITRATE NEG (NEG); URINE PROTEIN 1+ (NEG); URINE SPECIFIC GRAVITY 1.023 (1.003-1.035); URINE UROBILINOGEN 0.2 MG/DL (NEG)
[2017-03-30 01:11] LABS: CULTURE INDICATED? YES; URINE BACTERIA AUWI 4+ (NEGATIVE); URINE SQUAMOUS EPITHELIAL CELL NONE SEEN /[HPF]; UWBCS1 AUWI 0-2 (0-5)
[2017-03-30] MEDS ORDERED: MEPILEX TOP (05:16)
[2017-03-30] MEDS ORDERED: PERCOCET PO (05:16)
[2017-03-30 08:23] LABS: BASOPHIL% 0.2 % (0-2.5); HEMATOCRIT 39.6 % (35.0-45.0); HEMOGLOBIN 13.1 gm/dL (12.0-16.0); LYMPHOCYTE# 1.5 X10e3 (1.0-3.5); LYMPHOCYTE% 14.4 % (17.0-45.0); MEAN CELL VOLUME 85.7 FL (83-96); MEAN CORPUSCULAR HEMOGLOBIN 28.4 PG (28-34); MEAN CORPUSCULAR HGB CONC 33.1 g/dL (30-36); MONOCYTE# 0.3 X10e3 (0-1.0); MONOCYTE% 2.5 % (3.0-12.0); NEUTROPHIL# 8.5 X10e3 (1.5-7.1); NEUTROPHIL% 82.9 % (40-75); PLATELET COUNT 208 X10e3 (140-420); RED BLOOD COUNT 4.62 X10e (3.90-5.30); RED CELL DISTRIBUTION WIDTH 15.2 % (11.0-15.5); WHITE BLOOD COUNT 10.2 X10e3 (4.0-10.5)
[2017-03-30 08:34] LABS: DIFF IND NO
[2017-03-30 08:57] LABS: BUN/CREATININE RATIO 23.33; CALCIUM SERUM 8.5 mg/dL (8.4-10.2); CREATININE SERUM 0.6 mg/dL (0.6-1.4); GLOM FILT RATE Estimated 98.4 mL/min (>60); POTASSIUM 4.3 mmol/L (3.5-5.1)
[2017-03-31 05:40] LABS: HEMATOCRIT 39.4 % (35.0-45.0); MEAN CORPUSCULAR HEMOGLOBIN 28.3 PG (28-34); MEAN CORPUSCULAR HGB CONC 32.9 g/dL (30-36); RED BLOOD COUNT 4.58 X10e (3.90-5.30); RED CELL DISTRIBUTION WIDTH 15.2 % (11.0-15.5); WHITE BLOOD COUNT 12.1 X10e3 (4.0-10.5)
[2017-03-31 05:50] LABS: CALCIUM SERUM 8.7 mg/dL (8.4-10.2); CREATININE SERUM 0.5 mg/dL (0.6-1.4); GLOM FILT RATE Estimated 104.5 mL/min (>60); POTASSIUM 4.6 mmol/L (3.5-5.1)
[2017-04-01 06:22] LABS: BASOPHIL% 0.1 % (0-2.5); HEMATOCRIT 38.6 % (35.0-45.0); HEMOGLOBIN 12.7 gm/dL (12.0-16.0); LYMPHOCYTE# 2.3 X10e3 (1.0-3.5); LYMPHOCYTE% 17.4 % (17.0-45.0); MEAN CELL VOLUME 85.9 FL (83-96); MEAN CORPUSCULAR HEMOGLOBIN 28.3 PG (28-34); MEAN CORPUSCULAR HGB CONC 32.9 g/dL (30-36); MEAN PLATELET VOLUME 8.9 FL (6.5-11.5); MONOCYTE# 0.7 X10e3 (0-1.0); MONOCYTE% 5.7 % (3.0-12.0); NEUTROPHIL% 76.8 % (40-75); PLATELET COUNT 198 X10e3 (140-420)
[2017-04-01 06:23] LABS: DIFF IND NO
[2017-04-01 07:42] LABS: CALCIUM SERUM 9.1 mg/dL (8.4-10.2); CREATININE SERUM 0.5 mg/dL (0.6-1.4); GLOM FILT RATE Estimated 104.5 mL/min (>60); POTASSIUM 4.4 mmol/L (3.5-5.1)
[2017-04-02 08:15] LABS: HEMATOCRIT 39.2 % (35.0-45.0); MEAN CELL VOLUME 85.8 FL (83-96); MEAN CORPUSCULAR HEMOGLOBIN 28.5 PG (28-34); MEAN CORPUSCULAR HGB CONC 33.2 g/dL (30-36); MEAN PLATELET VOLUME 8.8 FL (6.5-11.5); RED BLOOD COUNT 4.57 X10e (3.90-5.30); WHITE BLOOD COUNT 12.7 X10e3 (4.0-10.5)
[2017-04-02 09:13] LABS: CALCIUM SERUM 8.7 mg/dL (8.4-10.2); CREATININE SERUM 0.5 mg/dL (0.6-1.4); GLOM FILT RATE Estimated 104.5 mL/min (>60); POTASSIUM 4.8 mmol/L (3.5-5.1)
[2017-04-03 06:43] LABS: HEMATOCRIT 40.2 % (35.0-45.0); HEMOGLOBIN 13.3 gm/dL (12.0-16.0); MEAN CELL VOLUME 86.1 FL (83-96); MEAN CORPUSCULAR HEMOGLOBIN 28.4 PG (28-34); MEAN PLATELET VOLUME 9.6 FL (6.5-11.5); RED BLOOD COUNT 4.67 X10e (3.90-5.30); RED CELL DISTRIBUTION WIDTH 15.4 % (11.0-15.5); WHITE BLOOD COUNT 14.7 X10e3 (4.0-10.5)
[2017-04-03 12:36] LABS: BUN/CREATININE RATIO 33.33; CALCIUM SERUM 8.8 mg/dL (8.4-10.2); CREATININE SERUM 0.6 mg/dL (0.6-1.4); GLOM FILT RATE Estimated 98.4 mL/min (>60); POTASSIUM 4.4 mmol/L (3.5-5.1)
[2017-04-04 05:43] LABS: HEMATOCRIT 39.8 % (35.0-45.0); HEMOGLOBIN 13.3 gm/dL (12.0-16.0); MEAN CELL VOLUME 85.8 FL (83-96); MEAN CORPUSCULAR HEMOGLOBIN 28.6 PG (28-34); MEAN CORPUSCULAR HGB CONC 33.3 g/dL (30-36); MEAN PLATELET VOLUME 8.6 FL (6.5-11.5); RED BLOOD COUNT 4.64 X10e (3.90-5.30); RED CELL DISTRIBUTION WIDTH 15.3 % (11.0-15.5); WHITE BLOOD COUNT 15.1 X10e3 (4.0-10.5)
[2017-04-05 05:12] LABS: HEMOGLOBIN 12.6 gm/dL (12.0-16.0); MEAN CELL VOLUME 85.9 FL (83-96); MEAN CORPUSCULAR HEMOGLOBIN 28.5 PG (28-34); MEAN CORPUSCULAR HGB CONC 33.2 g/dL (30-36); MEAN PLATELET VOLUME 8.7 FL (6.5-11.5); RED BLOOD COUNT 4.43 X10e (3.90-5.30); RED CELL DISTRIBUTION WIDTH 14.8 % (11.0-15.5); WHITE BLOOD COUNT 13.2 X10e3 (4.0-10.5)
[2017-04-05 07:03] LABS: CALCIUM SERUM 8.7 mg/dL (8.4-10.2); CREATININE SERUM 0.5 mg/dL (0.6-1.4); GLOM FILT RATE Estimated 103.7 mL/min (>60); POTASSIUM 4.3 mmol/L (3.5-5.1)
[2017-04-27] MEDS ORDERED: NYSTATIN100000 UN1 PO (09:10)
[2017-04-27] MEDS ORDERED: FLOMAX0.4 M1 PO (09:11)
[2017-04-27] MEDS ORDERED: FLORASTORKIDS250 MG PO (09:14)
[2017-04-27] MEDS ORDERED: MUCINEX1200 MG PO (09:17)
[2017-04-27] MEDS ORDERED: SYMBICORT INH (09:22)
[2017-04-27] MEDS ORDERED: CRESTOR10 MG PO (09:24)
[2017-04-27] MEDS ORDERED: COMBIVENT U/D3 M2 INH (09:28)
[2017-04-27] MEDS ORDERED: ATROVENT HFA12.9 GM INH (09:36)
== END 2017-04-05 19:32 | DRG 189 ==
LOC: CED 20:56 → CEDOF 03-30 02:00 → CED 03-30 02:22 → C2A 03-30 04:41 → CEDOF 03-30 04:41 → C2A 04-05 19:32
PROVIDERS: Emergency Medicine; Hospitalist; Nurse Practitioner Family; Physician Assistant Medical
PROC: 05HB33Z Insertion of Infusion Device into Right Basilic Vein, Percutaneous Approach (ICD-10-PCS; principal; 2017-04-01)
PROC: B54MZZA Ultrasonography of Right Upper Extremity Veins, Guidance (ICD-10-PCS; 2017-04-01)
DX: J96.20 Acute and chronic respiratory failure, unspecified whether with hypoxia or hypercapnia (principal); J18.9 Pneumonia, unspecified organism; K31.84 Gastroparesis; J44.0 Chronic obstructive pulmonary disease with (acute) lower respiratory infection; E11.65 Type 2 diabetes mellitus with hyperglycemia; I50.9 Heart failure, unspecified; E11.43 Type 2 diabetes mellitus with diabetic autonomic (poly)neuropathy; I69.954 Hemiplegia and hemiparesis following unspecified cerebrovascular disease affecting left non-dominant side; J44.1 Chronic obstructive pulmonary disease with (acute) exacerbation; N39.0 Urinary tract infection, site not specified; I25.10 Atherosclerotic heart disease of native coronary artery without angina pectoris; Z90.49 Acquired absence of other specified parts of digestive tract; Z90.710 Acquired absence of both cervix and uterus; Z91.041 Radiographic dye allergy status; F17.210 Nicotine dependence, cigarettes, uncomplicated; B96.20 Unspecified Escherichia coli [E. coli] as the cause of diseases classified elsewhere; Z79.84 Long term (current) use of oral hypoglycemic drugs; Z87.442 Personal history of urinary calculi; T38.0X5A Adverse effect of glucocorticoids and synthetic analogues, initial encounter; Z79.82 Long term (current) use of aspirin; K59.00 Constipation, unspecified
CPT/HCPCS: 36415; 71010; 74176; 80048; 80076; 81003; 82553; 82947; 83605; 83690; 83880; 84484; 85025; 85027; 87040; 87086; 87088; 87186; 94640; 94664; 94760; 96372; 96374; 97163; 97167; 97530; 99285; G8978-GP; G8979-GP; G8987-GO; G8988-GO; J0500; J0696; J1335; J1650; J1815; J2185; J2543; J2920; J3260; J3370